=== PATIENT | female | born 2000 | race Caucasian/White ===

== ENCOUNTER 2022-02-21 01:23 | Observation (INO) | payer SELFPAY ==
[2022-02-21 02:05] LABS: Bilirubin Neg (Negative); Blood, Urine 10 (Negative); Clarity Cloudy (Clear); Glucose, Urine (Dipstick) Normal (Negative); Ketone, Urine Negative (Negative); Leukocyte 100 (Negative); Nitrite Negative (Negative); Protein, Urine (Dipstick) Negative (Neg-Trace); Urobilinogen Normal mg/dL (Less than 2)
[2022-02-21 02:07] LABS: Pregnancy Test - Urine (BHCG) Negative (Negative); Pregu Control Background? CLEAR/WHITE (CLR/WHITE); Pregu Control Bar Appear? YES (CONTROL BAR)
[2022-02-21 02:16] LABS: Bacteria/HPF 1+ HPF (None Seen); RBC/HPF 0-3 HPF (0-3); Squamous Epithelial 0-3 HPF (0-3); WBC/HPF 0-3 HPF (0-3)
[2022-02-21 02:25] LABS: #Eosinphils 0.2 10x3/uL (0.0-0.5); #Monocytes 0.8 10x3/uL (0.0-1.1); #Neutrophils 8.4 10x3/uL (1.5-8.4); %Basophils 0.4 % (0.0-2.0); %Eosinophils 1.5 % (0.0-6.0); %Lymphocytes 17.1 % (18.0-47.0); %Monocytes 7.4 % (0.0-10.0); %Neutrophils 73.2 % (40.0-75.0); Mean Corpuscular HGB CONC 32.6 g/dL (32.0-36.0); Mean Corpuscular Hemoglobin 28.8 pg (27.0-33.0); Mean Corpuscular Volume 88.5 fl (81.6-98.3); Mean Platelet Volume 8.9 fl (7.4-10.4); Platelet Count 598 10x3/uL (150-450); RBC Distribution Width 12.5 % (11.5-14.5); Red Blood Cell (RBC) Count 4.16 10x6/uL (3.90-5.03); White Blood Cell (WBC) Count 11.4 10x3/uL (3.5-10.5)
[2022-02-21 02:43] LABS: ALT (SGPT) 15 U/L (8-55); AST (SGOT) 17 U/L (5-34); Albumin 3.8 g/dL (3.5-5.0); Alkaline Phosphatase 119 U/L (40-110); Anion Gap 16 mmol/L (10-20); BUN (Urea Nitrogen) 9 mg/dL (7.0-18.7); Bilirubin, Total 0.2 mg/dL (0.2-1.2); Calc. Creatinine Clearance 0 mL/min (70-130); Calcium 9.4 mg/dL (7.8-10.44); Carbon Dioxide 26 mmol/L (22-29); Chloride 103 mmol/L (98-107); Globulin 3.6 g/dL (2.4-3.5); Glucose 94 mg/dL (70-105); Potassium 3.7 mmol/L (3.5-5.1); Protein, Total 7.4 g/dL (6.0-8.3); Sodium 141 mmol/L (136-145)
[2022-02-21] MEDS ORDERED: Morphine 4 MG/ML VIAL ONE (02:58)
[2022-02-21] MEDS ORDERED: Ondansetron PF 4 MG/2 ML Vial ONE (03:00)
[2022-02-21] MEDS ORDERED: metroNIDAZOLE 500 MG/100 ML BAG ONE (06:26)
[2022-02-21] MEDS ORDERED: cefTRIAXone\\ROCEPHIN 1 GM VIAL ONE (06:26)
[2022-02-21] MEDS ORDERED: Doxycycline 100 MG CAP PO SCH (06:45)
[2022-02-21 07:57] LABS: SARS-CoV-2 NAA Rapid Test Not Detected (NotDetected)
[2022-02-21] MEDS ORDERED: Acetaminophen 325 MG TAB PO PRN (09:13)
[2022-02-21] MEDS ORDERED: Ketorolac Tromethamine 30 MG/ML VIAL IVP PRN ×2 (09:18→09:22)
[2022-02-21] MEDS ORDERED: Lactated Ringer's 1,000 ML IV SCH (09:30)
[2022-02-21] MEDS ORDERED: Iopamidol 300 61% 100 ML VIAL FS ONE (09:51)
[2022-02-21] MEDS ORDERED: traMADol HCl 50 MG TAB PO PRN (12:31)
[2022-02-21 15:40] LABS: Amphetamine Not Detected (NotDetected); Barbiturates Screen Not Detected (NotDetected); Benzodiazepine Screen Not Detected (NotDetected); Cocaine Metabolite Screen Not Detected (NotDetected); Methadone Not Detected (NotDetected); Methamphetamine Not Detected (NotDetected); Opiate Screen Not Detected (NotDetected); Oxycodone Screen Not Detected (NotDetected); Phencyclidine (PCP) Not Detected (NotDetected); THC/Cannabinoid Screen Detected (NotDetected); Tricyclic Screen Not Detected (NotDetected)
[2022-02-21] MEDS: Acetaminophen 500 MG TAB PO PRN (16:42)
[2022-02-21 19:25] LABS: Chlamydia by PCR DETECTED (NotDetected); GC by PCR Not Detected (NotDetected)
[2022-02-21] MEDS: Doxycycline 100 MG CAP PO SCH (20:27)
[2022-02-21] MEDS: metroNIDAZOLE 500 MG TAB PO SCH (20:27)
[2022-02-22] MEDS: Acetaminophen 500 MG TAB PO PRN (00:36)
[2022-02-22] MEDS ORDERED: cefTRIAXone\\ROCEPHIN 1 GM in Sodium Chloride 0.9% 100 ML IVPB SCH (07:30)
[2022-02-22] MEDS: metroNIDAZOLE 500 MG TAB PO SCH (08:36)
[2022-02-22] MEDS: Doxycycline 100 MG CAP PO SCH (08:36)
[2022-02-22 09:23] VITALS: BP 112/59; TEMP 98.2
== END 2022-02-22 10:15 | disposition home or self-care (01) ==
LOC: CSHERS 01:23 → CSHPED 08:56 → CSHPP 20:59
PROVIDERS: ADMIT Obstetrics & Gynecology; ATTEND Obstetrics & Gynecology
DX: A56.11 Chlamydial female pelvic inflammatory disease (principal); N39.0 Urinary tract infection, site not specified; N83.201 Unspecified ovarian cyst, right side; N70.11 Chronic salpingitis; Z88.6 Allergy status to analgesic agent; Z20.822 Contact with and (suspected) exposure to COVID-19
CPT/HCPCS: 36415; 74177; 76856; 80053; 80306; 81003; 81015; 81025; 83605; 85025; 87040; 87086; 87480; 87491; 87510; 87591; 87660; 96365; 96368; 96375; G0378; J0696; J2270; J2405; J3490; J7120; Q9967; U0002